=== PATIENT | male | born 2000 ===

== ENCOUNTER 2024-01-12 12:56 | Outpatient (CLI) | payer OTHER ==
--- NOTE | 2024-01-12 16:39 | Ultrasound Report ---
PROCEDURE: Renal (Retroperitoneal) INDICATIONS: DISORDER OF KIDNEY TECHNIQUE: Real-time scanning was performed of the retroperitoneal organs, with image documentation. COMPARISON: None. FINDINGS: Kidneys: Kidneys are normal in size. Right kidney measures 10.3 cm long; left kidney measures 11.7 cm long. Right renal cortical thickness is 1 cm; left renal cortical thickness is 1.3 cm. No solid masses, hydronephrosis, or nephrolithiasis. Bladder: Pre-void bladder volume is 572 mL. Post-void residual is 4.2 mL. Pre-void images demonstr ate no intraluminal masses or stones. On pre-void images, bilateral ureteral jets are noted with col or Doppler interrogation. (Of note, ureteral jets may not be detectable in up to 25% of cases due to insufficient differences in specific gravity between ureteral and bladder urine). Miscellaneous: No free abdominal fluid. Prostate measures 3.7 x 2.7 x 4.2 cm. IMPRESSION: 1.No hydronephrosis or nephrolithiasis bilaterally. 2.Normal sonographic appearance of the bladder with postvoid residual of 4.2 mL. Reviewed by: Arti Bojorquez MD on 01/12/2024 4:37 PM PDT Approved by: Arti Bojorquez MD on 01/12/2024 4:37 PM PDT Station ID: [id number]
== END 2024-01-12 12:57 | disposition home or self-care (01) ==
LOC: DI 12:56
PROVIDERS: ATTEND Preventive Medicine Aerospace Medicine
DX: N28.89 Other specified disorders of kidney and ureter (principal)